=== PATIENT | female | born 1995 | race Caucasian/White ===

== ENCOUNTER 2019-02-18 19:48 | Emergency (ER) | payer OTHER ==
[~2019-02-18] VITALS: Ht 162.6 cm; Wt 64.9 kg
[2019-02-18 19:54] VITALS: BP 114/58; Ht 162.6 cm; Wt 64.9 kg
== END 2019-02-18 20:51 | disposition home or self-care (01) ==
LOC: ED 19:48
DX: J06.9 Acute upper respiratory infection, unspecified (principal)

== ENCOUNTER 2020-07-06 00:04 | Emergency (ER) | payer OTHER ==
[~2020-07-06] VITALS: Ht 162.6 cm; Wt 72.6 kg
[2020-07-06 00:10] VITALS: Ht 162.6 cm; Wt 72.6 kg
[2020-07-06 01:40] VITALS: BP 116/81
== END 2020-07-06 01:40 | disposition home or self-care (01) ==
LOC: ED 00:04
DX: S29.012A Strain of muscle and tendon of back wall of thorax, initial encounter (principal); V49.9XXA Car occupant (driver) (passenger) injured in unspecified traffic accident, initial encounter; Y93.I9 Activity, other involving external motion; Y92.413 State road as the place of occurrence of the external cause; Y99.8 Other external cause status
CPT/HCPCS: 72072

== ENCOUNTER 2020-07-10 16:22 | Emergency (ER) | payer OTHER ==
[~2020-07-10] VITALS: Ht 162.6 cm; Wt 73.5 kg
[2020-07-10 16:50] VITALS: Ht 162.6 cm; Wt 73.5 kg
[2020-07-10 17:41] VITALS: BP 114/77
== END 2020-07-10 17:41 | disposition home or self-care (01) ==
LOC: ED 16:22
DX: M75.42 Impingement syndrome of left shoulder (principal)